=== PATIENT | male | born 1960 | race Two or more races ===

== ENCOUNTER 2024-07-07 07:19 | Day surgery (SDC) | payer OTHER ==
[2024-07-07] MEDS ORDERED: DIPHENHYDRAMINE HCL 50 MG/ML VIAL 1ML IV ONE (11:30)
[2024-07-07] MEDS ORDERED: fentaNYL CITRATE 50 MCG/ML AMPUL IV ONE (11:30)
[2024-07-07] MEDS ORDERED: MIDAZOLAM HCL 2 MG/2 ML VIAL IV ONE (11:30)
== END 2024-07-07 12:40 | disposition home or self-care (01) ==
LOC: AMB-ENDOS 07:19
PROVIDERS: ATTEND Surgery
DX: D12.3 Benign neoplasm of transverse colon (principal); K62.1 Rectal polyp; K63.5 Polyp of colon; K57.30 Diverticulosis of large intestine without perforation or abscess without bleeding; K64.8 Other hemorrhoids; K62.89 Other specified diseases of anus and rectum

== ENCOUNTER 2024-08-11 07:37 | Day surgery (SDC) | payer OTHER ==
[2024-08-05 13:08] VITALS: BP 140/90; BP 170/98
[~2024-08-11] VITALS: Ht 182.9 cm; Wt 99.8 kg
[~2024-08-11 07:37] MED LIST: COZAAR100 MG PO
[2024-08-11] MEDS ORDERED: METRONIDAZOLE/SODIUM CHLORIDE 500 MG/100 ML PIGGYBACK IV ONE (09:30)
[2024-08-11] MEDS ORDERED: CEFTRIAXONE SODIUM 2,000 MG VIAL ONE (09:30)
[2024-08-11] MEDS ORDERED: POVIDONE-IODINE 118 ML BOTT TOP ONE (09:59)
[2024-08-11] MEDS ORDERED: HEMOSTATIC MATRIX 1 KIT KIT TOP ONE (09:59)
[2024-08-11] MEDS ORDERED: DIBUCAINE 30 GM TUBE ONE (09:59)
[2024-08-11] MEDS ORDERED: BUPIVACAINE HCL/MPF 0.5% 30ML VIAL ONE (10:00)
[2024-08-11] MEDS ORDERED: LIDOCAINE HCL 1%/EPINEPHRINE 20ML VIAL IJ ONE (10:00)
[2024-08-11] MEDS ORDERED: OXYCODONE HCL5 MG PO (13:54)
[2024-08-11] MEDS ORDERED: TAMSULOSIN HCL 0.4 MG CAP PO ONE ×2 (14:00→14:31)
[2024-08-12 11:23] VITALS: BP 155/77; O2SAT 100
== END 2024-08-11 15:50 | disposition home or self-care (01) ==
LOC: CIR.AMB 07:37
PROVIDERS: ATTEND Surgery
DX: D12.8 Benign neoplasm of rectum (principal); K57.30 Diverticulosis of large intestine without perforation or abscess without bleeding; K62.1 Rectal polyp; K62.89 Other specified diseases of anus and rectum